=== PATIENT | female | born 1945 | race Caucasian/White ===

== ENCOUNTER → 2019-09-05 | Outpatient (CLI) | payer MEDICARE, BC | LOC: MC.RAD 13:45 | DX: Z12.31 Encounter for screening mammogram for malignant neoplasm of breast (principal); N64.89 Other specified disorders of breast ==

== ENCOUNTER → 2019-09-13 | Outpatient (CLI) | payer MEDICARE, BC | LOC: MC.RAD 13:00 | DX: N64.89 Other specified disorders of breast (principal) ==

== ENCOUNTER 2019-09-28 06:44 | Day surgery (SDC) | payer MEDICARE, BC ==
[~2019-09-28] VITALS: Ht 152.4 cm; Wt 75.8 kg
[2019-09-28 07:55] VITALS: BP 141/74; PULSE 74; TEMP 97.7
[2019-09-28 08:30] VITALS: BP 141/74; PULSE 74; TEMP 97.7
[2019-09-28] MEDS ORDERED: PRAVACHOL 20MG20 MG PO ×2 (08:36→08:39)
[2019-09-28] MEDS ORDERED: NORVASC 5MG5 MG/TAB PO (08:36)
[2019-09-28] MEDS ORDERED: SYNTHROID0.05 MG/TA PO (08:37)
[2019-09-28] MEDS ORDERED: JANUMXR500-50 PO (08:39)
[2019-09-28] MEDS ORDERED: NASONEX SPRAY17 GM NS (08:40)
--- NOTE | 2019-09-28 11:19 | NUR ---
TAKEN TO RADIOLOGY AT 1000 AND BACK TO RM
[2019-09-28 13:33] VITALS: BP 133/77; PULSE 85; TEMP 97.8
[2019-09-28 13:45] VITALS: BP 133/97; PULSE 67
--- NOTE | 2019-09-28 13:45 | NUR ---
Patient tolerating food and drink without difficulty. States she needs to use restroom. Able to urinate without difficulty. Denies pain or nausea. Will conitnue to monitor.
[2019-09-28 14:00] VITALS: BP 145/63; PULSE 70
--- NOTE | 2019-09-28 14:19 | NUR ---
Patient brought back to room 7 via cart from OR. Report recieved from Alise LAL and TUBE TELLER. Patient on 4L oxygen via mask. Patient responding to verbal stimuli. Incisions to left breast clean dry intact charles set in place. States she would like a water and muffin. Placed upright, titrated off oxygen, SpO2 WNL on room air. Call eid within reach, will continue to monitor.
--- NOTE | 2019-09-28 14:24 | NUR ---
C/O PAIN 3-11/04 AND RECEIVED NORCO 5MG 1 TAB
--- NOTE | 2019-09-28 14:24 | NUR ---
Patient states pain 5/10 to left breast. Pain medication given per orders. Will monitor.
--- NOTE | 2019-09-28 14:30 | NUR ---
Discharge information and education provided to patient. Verbalized understanding. called and made aware to come flower buncher or picker.
--- NOTE | 2019-09-28 15:18 | NUR ---
Patient reports mild improvement to pain. Wheeled out to lobby. at picked up at front door.
== END 2019-09-28 15:18 | disposition home or self-care (01) ==
LOC: SDCO 06:44
DX: C50.212 Malignant neoplasm of upper-inner quadrant of left female breast (principal); Z17.0 Estrogen receptor positive status [ER+]; E11.9 Type 2 diabetes mellitus without complications; Z79.84 Long term (current) use of oral hypoglycemic drugs; I10 Essential (primary) hypertension; Z79.899 Other long term (current) drug therapy; Z88.2 Allergy status to sulfonamides; E78.5 Hyperlipidemia, unspecified
CPT/HCPCS: A9541; J2250; J2704; J2795; J7030

== ENCOUNTER → 2020-09-05 | Outpatient (CLI) | payer MEDICARE, BC ==
[~2020-09-05] MED LIST: JANUMXR500-50 PO; NASONEX SPRAY17 GM NS; NORVASC 5MG5 MG/TAB PO; PRAVACHOL 20MG20 MG PO; SYNTHROID0.05 MG/TA PO
== END ==
LOC: MC.RAD
DX: I10 Essential (primary) hypertension (principal); Z98.890 Other specified postprocedural states; Z98.82 Breast implant status; Z85.3 Personal history of malignant neoplasm of breast

== ENCOUNTER → 2021-09-10 | Outpatient (CLI) | payer MEDICARE, BC | LOC: MC.RAD 12:56 | DX: N64.9 Disorder of breast, unspecified (principal); C50.212 Malignant neoplasm of upper-inner quadrant of left female breast; Z98.890 Other specified postprocedural states ==

== ENCOUNTER → 2022-09-11 | Outpatient (CLI) | payer MEDICARE, BC | LOC: MC.RAD 14:30 | DX: Z12.31 Encounter for screening mammogram for malignant neoplasm of breast (principal); C50.212 Malignant neoplasm of upper-inner quadrant of left female breast ==

== ENCOUNTER → 2023-09-16 | Outpatient (CLI) | payer MEDICARE | LOC: MC.RAD 13:00 | DX: Z12.31 Encounter for screening mammogram for malignant neoplasm of breast (principal); C50.212 Malignant neoplasm of upper-inner quadrant of left female breast ==